=== PATIENT | male | born 1965 | race Caucasian/White ===

== ENCOUNTER 2017-11-10 05:57 | Inpatient (IN) | payer MEDICARE, OTHER ==
[2017-11-09 14:46] LABS: BASOPHILS % (AUTO) 0.6 % (0-1); EOSINOPHILS # (AUTO) 0.3 X10'3 (0-0.9); EOSINOPHILS % (AUTO) 4.2 % (0-6); HEMATOCRIT 49.3 % (42.0-52.0); LYMPHOCYTES # (AUTO) 1.4 X10'3 (1.1-4.8); LYMPHOCYTES % (AUTO) 22.2 % (21-51); MEAN CORPUSCULAR HEMOGLOBIN 34.1 PG (27.0-31.0); MEAN CORPUSCULAR HGB CONC 34.3 % (33.0-36.5); MEAN CORPUSCULAR VOLUME 99.3 FL (78-98); MEAN PLATELET VOLUME 7.7 FL (7.4-10.4); MONOCYTES # (AUTO) 0.7 X10'3 (0-0.9); MONOCYTES % (AUTO) 10.6 % (2-12); NEUTROPHILS # (AUTO) 4.1 X10'3 (1.8-7.7); NEUTROPHILS % (AUTO) 62.4 % (42-75); PLATELET COUNT 237 X10'3 (140-440); RED BLOOD COUNT 4.97 X10'6 (4.70-6.10); RED CELL DISTRIBUTION WIDTH 13.6 % (11.5-14.5); WHITE BLOOD COUNT 6.5 X10'3 (4.5-11.0)
[2017-11-09 14:54] LABS: ALBUMIN 3.8 G/DL (3.4-5.0); ANION GAP 6 (8-16); BLOOD UREA NITROGEN 14 MG/DL (7-18); BUN/CREATININE RATIO 15.4 (5.4-32.0); CALCIUM 10.1 MG/DL (8.5-10.1); CHLORIDE 100 MMOL/L (99-107); CREATININE 0.91 MG/DL (0.60-1.10); GLUCOSE 102 MG/DL (70-104); PARTIAL THROMBOPLASTIN TIME 25 SECONDS (22-32); POTASSIUM 4.6 MMOL/L (3.5-5.1); PROTHROMBIN TIME 10.3 SECONDS (9.0-12.0); SODIUM 138 MMOL/L (135-145); TOTAL CARBON DIOXIDE 31.9 MMOL/L (24-32); eGFR 87 ML/MIN
[~2017-11-10] VITALS: Ht 172.7 cm; Wt 88.4 kg
[2017-11-10] MEDS ORDERED: LORazepam 0.5 MG tablet PO PRN (06:10)
[2017-11-10] MEDS ORDERED: diphenhydrAMINE 25mg capsule PO PRN (06:10)
[2017-11-10 06:16] VITALS: BP 145/85
[2017-11-10] MEDS ORDERED: PRAS50CA2 PO (06:26)
[2017-11-10] MEDS ORDERED: METO50TA16 PO (06:26)
[2017-11-10] MEDS ORDERED: HYDR12.5 PO (06:26)
[2017-11-10] MEDS ORDERED: ASPI-1264 PO (06:26)
[2017-11-10] MEDS ORDERED: LISI40TA4 PO (06:26)
[2017-11-10] MEDS ORDERED: ATOR10TA87 PO (06:26)
[2017-11-10] MEDS ORDERED: ALPR1TAB2 PO (06:26)
[2017-11-10] MEDS ORDERED: FLEC100T2 PO (06:26)
[2017-11-10] MEDS ORDERED: VITA400C65 PO (06:26)
[2017-11-10] MEDS: normal saline 1000ml 1,000 ML IV SCH ×3 (06:34→17:44)
[2017-11-10] MEDS ORDERED: LIDOcaine/PRILOcaine 5gm cream TP ONE (07:15)
[2017-11-10] MEDS ORDERED: nitroGLYCERIN-Tridil 50MG/D5W 250 ML IV ONE (07:39)
[2017-11-10] MEDS ORDERED: LIDOcaine 1% 30ml preserv. free vial ONE (07:40)
[2017-11-10] MEDS ORDERED: iohexol 350MG/ML 100ml bottle IV ONE ×2 (07:40→09:04)
[2017-11-10] MEDS ORDERED: iohexol 350 MG/ML 50ML vial IV ONE (07:40)
[2017-11-10] MEDS ORDERED: heparin 1,000unit/ml 10ml vial 10 ML ONE (07:40)
[2017-11-10] MEDS ORDERED: midazolam 2 mg/2 ml injection ONE (07:40)
[2017-11-10] MEDS ORDERED: fentaNYL/PF 50MCG/1 ML 2ML syringe ONE (07:40)
[2017-11-10] MEDS ORDERED: verapamil 2.5 mg/ml inj IV ONE (08:00)
[2017-11-10] MEDS ORDERED: clopidogrel 300mg tablet ONE (09:24)
[2017-11-10] MEDS ORDERED: acetaminophen 325mg tablet PO PRN (10:50)
[2017-11-10] MEDS ORDERED: cyclobenzaprine 10mg tablet PO PRN (10:50)
[2017-11-10] MEDS ORDERED: CLOPIDOGREL BISULFATE 300MG TAB PO ONE (10:50)
[2017-11-10] MEDS ORDERED: HYDROcodone/acetaminophen 10/325mg tab PO PRN ×2 (10:50)
[2017-11-10] MEDS ORDERED: OXAZEpam 15mg capsule PO PRN (10:50)
[2017-11-10] MEDS ORDERED: magnesium hydroxide 30ml (MOM) UD suspension PO PRN (10:50)
[2017-11-10] MEDS ORDERED: proCHLORperazine 10 MG/2 ml inj IV PRN (10:50)
[2017-11-10] MEDS ORDERED: aspirin 81mg tab.chew PO ONE (10:55)
[2017-11-10] MEDS: OXAZEpam 15mg capsule PO SCH ×2 (11:10→17:44)
[2017-11-10 11:24] VITALS: BP 147/81
[2017-11-10 15:00] VITALS: BP 148/74
[2017-11-10 19:00] VITALS: BP 160/78
[2017-11-10] MEDS ORDERED: LIDOcaine 2% 5ml jelly TOP PRN (19:15)
[2017-11-10] MEDS: sotalol 80mg tablet PO SCH (20:17)
[2017-11-10] MEDS: docusate sod 100mg capsule PO SCH (20:18)
[2017-11-10] MEDS ORDERED: atorvastatin 20mg tablet PO SCH (21:00)
[2017-11-10] MEDS: ALPRAZolam 0.5mg tablet PO PRN (22:02)
[2017-11-10 23:00] VITALS: BP 162/86
[2017-11-10] MEDS ORDERED: temazepam 15mg capsule PO PRN (23:15)
[2017-11-11] VITALS (10 sets, daily range): BP systolic 121–146; BP diastolic 60–83
[2017-11-11] MEDS ORDERED: nitroGLYCERIN-Tridil 50MG/D5W 250 ML IV ONE (06:11)
[2017-11-11] MEDS ORDERED: midazolam 2 mg/2 ml injection ONE (06:11)
[2017-11-11] MEDS ORDERED: heparin 1,000unit/ml 10ml vial 10 ML ONE (06:11)
[2017-11-11] MEDS ORDERED: iohexol 350 MG/1 ML 200ml bottle ONE (06:11)
[2017-11-11] MEDS ORDERED: LIDOcaine 1% 30ml preserv. free vial ONE (06:11)
[2017-11-11] MEDS ORDERED: fentaNYL/PF 50MCG/1 ML 2ML syringe ONE (06:11)
[2017-11-11] MEDS ORDERED: verapamil 2.5 mg/ml inj IV ONE (06:27)
[2017-11-11] MEDS ORDERED: iohexol 350MG/ML 100ml bottle IV ONE (07:45)
[2017-11-11] MEDS ORDERED: clopidogrel 300mg tablet ONE (07:48)
[2017-11-11] MEDS ORDERED: PRASTERONE 50 MG PO SCH (08:00)
[2017-11-11] MEDS ORDERED: vitamin E 400 unit capsule PO SCH (08:00)
[2017-11-11] MEDS ORDERED: aspirin 81mg tab.chew PO SCH (08:00)
[2017-11-11] MEDS ORDERED: clopidogrel 75mg tablet PO SCH (08:00)
[2017-11-11] MEDS ORDERED: lisinopril 20mg tablet PO SCH (08:00)
[2017-11-11] MEDS ORDERED: aspirin 325mg tablet PO SCH (08:30)
[2017-11-11] MEDS: sotalol 80mg tablet PO SCH (09:14)
[2017-11-11] MEDS: docusate sod 100mg capsule PO SCH (09:15)
[2017-11-11] MEDS: OXAZEpam 15mg capsule PO SCH ×3 (09:15→16:00)
[2017-11-11] MEDS: ALPRAZolam 0.5mg tablet PO PRN (09:16)
[2017-11-11] MEDS ORDERED: normal saline 1000ml 1,000 ML IV SCH (09:20)
[2017-11-11] MEDS ORDERED: SOTA80TA73 PO (09:33)
[2017-11-11] MEDS ORDERED: ATOR80TA PO (09:33)
[2017-11-11] MEDS ORDERED: CLOP75TA35 PO (09:33)
== END 2017-11-11 16:55 | disposition home or self-care (01) | DRG 247 ==
LOC: SSTAY O 05:57 → PCU 3S 10:00 → SSTAY O 10:00 → PCU 3S 10:34
PROVIDERS: ADMIT Internal Medicine Cardiovascular Disease; ATTEND Internal Medicine Cardiovascular Disease
PROC: 4A023N7 Measurement of Cardiac Sampling and Pressure, Left Heart, Percutaneous Approach (ICD-10-PCS; principal; 2017-11-10)
PROC: 027034Z Dilation of Coronary Artery, One Artery with Drug-eluting Intraluminal Device, Percutaneous Approach (ICD-10-PCS; 2017-11-10)
PROC: B2111ZZ Fluoroscopy of Multiple Coronary Arteries using Low Osmolar Contrast (ICD-10-PCS; 2017-11-10)
PROC: B2151ZZ Fluoroscopy of Left Heart using Low Osmolar Contrast (ICD-10-PCS; 2017-11-10)
PROC: 027135Z Dilation of Coronary Artery, Two Arteries with Two Drug-eluting Intraluminal Devices, Percutaneous Approach (ICD-10-PCS; 2017-11-11)
DX: I25.10 Atherosclerotic heart disease of native coronary artery without angina pectoris (principal); I48.92 Unspecified atrial flutter; I48.0 Paroxysmal atrial fibrillation; M19.90 Unspecified osteoarthritis, unspecified site; F41.9 Anxiety disorder, unspecified; E66.9 Obesity, unspecified; Z60.2 Problems related to living alone; F17.220 Nicotine dependence, chewing tobacco, uncomplicated; G47.30 Sleep apnea, unspecified; E78.5 Hyperlipidemia, unspecified; I10 Essential (primary) hypertension; R94.39 Abnormal result of other cardiovascular function study; Z79.82 Long term (current) use of aspirin; Z79.899 Other long term (current) drug therapy; Z82.49 Family history of ischemic heart disease and other diseases of the circulatory system; Z68.29 Body mass index [BMI] 29.0-29.9, adult
CPT/HCPCS: 93458; C9600; C9601; 36415; 80048; 85025; 85347; 85610; 85730; 92920; 92921; 93005; 99152; 99153; A4620; A6257; A6258; C1725; C1769; C1874; J1644; J2250; J3010; J3490; J7030; Q0163; Q9967

== ENCOUNTER 2023-03-21 10:09 | Emergency (ER) | payer MEDICARE, BC ==
[~2023-03-21] VITALS: Ht 175.3 cm; Wt 82.0 kg
[~2023-03-21 10:09] MED LIST: ALPR1TAB2 PO; ASPI-1264 PO; ATOR80TA PO; CLOP75TA34 PO; LISI40TA13 PO; PRAS50CA2 PO; SOTA80TA73 PO; VITA-288 PO
[2023-03-21 10:20] VITALS: TEMP 98
[2023-03-21 11:53] LABS: BASOPHILS % (AUTO) 0.6 % (0-1); EOSINOPHILS # (AUTO) 0.2 X10'3 (0-0.9); EOSINOPHILS % (AUTO) 3.1 % (0-6); HEMATOCRIT 45.9 % (42.0-52.0); HEMOGLOBIN 15.7 g/dl (14.0-17.9); LYMPHOCYTES # (AUTO) 1.2 X10'3 (1.1-4.8); LYMPHOCYTES % (AUTO) 23.8 % (21-51); MEAN CORPUSCULAR HEMOGLOBIN 33.5 PG (27.0-31.0); MEAN CORPUSCULAR HGB CONC 34.1 g/dL (33.0-36.5); MEAN PLATELET VOLUME 7.3 FL (7.4-10.4); MONOCYTES # (AUTO) 0.3 X10'3 (0-0.9); MONOCYTES % (AUTO) 6.9 % (2-12); NEUTROPHILS # (AUTO) 3.3 X10'3 (1.8-7.7); NEUTROPHILS % (AUTO) 65.6 % (42-75); PLATELET COUNT 209 X10'3 (140-440); RED BLOOD COUNT 4.68 X10'6 (4.70-6.10); RED CELL DISTRIBUTION WIDTH 13.6 % (11.5-14.5)
[2023-03-21 12:10] LABS: ALANINE AMINOTRANSFERASE 33 U/L (12-78); ALBUMIN 3.4 G/DL (3.4-5.0); ALBUMIN/GLOBULIN RATIO 0.8 (1.1-1.5); ALKALINE PHOSPHATASE 68 IU/L (46-116); ANION GAP 8 (8-16); ASPARTATE AMINO TRANSFERASE 32 U/L (10-37); BILIRUBIN,TOTAL 0.5 MG/DL (0.1-1.0); BLOOD UREA NITROGEN 13 MG/DL (7-18); BUN/CREATININE RATIO 17.8 (10.0-20.0); CALCIUM 8.7 MG/DL (8.5-10.1); CHLORIDE 104 MMOL/L (99-107); CREATININE 0.73 MG/DL (0.60-1.10); GLUCOSE 132 MG/DL (70-104); POTASSIUM 3.6 MMOL/L (3.5-5.1); SODIUM 142 MMOL/L (135-145); TOTAL CARBON DIOXIDE 30.5 MMOL/L (24-32); TOTAL PROTEIN 7.8 G/DL (6.4-8.2); eCRCL 109 ML/MIN; eGFR > 90 ML/MIN
[2023-03-21 12:19] LABS: PRO BRAIN NATRIURETIC PEPTIDE 140 PG/ML (0-125)
[2023-03-21] MEDS ORDERED: HYDR12.55 PO (13:55)
[2023-03-21] MEDS ORDERED: iohexol 350MG/ML 100ml bottle IV ONE (13:59)
[2023-03-21 15:02] LABS: BILIRUBIN,URINE NEGATIVE (Neg); CLARITY,URINE CLEAR (Clear); COLOR,URINE YELLOW (Yellow); GLUCOSE, URINE NEGATIVE (Neg); KETONES,URINE NEGATIVE (Neg); LEUKOCYTE ESTERASE ,URINE NEGATIVE (Neg); NITRITES, URINE NEGATIVE (Neg); OCCULT BLOOD,URINE NEGATIVE (Neg); PROTEIN,URINE NEGATIVE (Neg); UROBILINOGEN,URINE 0.2 E.U/dL (0.2-1.0)
[2023-03-21 15:03] LABS: UA COLLECTION TYPE URINAL
[2023-03-21 15:28] LABS: URINE AMPHETAMINE SCREEN NEGATIVE (Neg); URINE BARBITUATE SCREEN NEGATIVE (Neg); URINE BENZODIAZEPINES SCREEN NEGATIVE (Neg); URINE CANNABINOID SCREEN NEGATIVE (Neg); URINE COCAINE SCREEN NEGATIVE (Neg); URINE METHADONE SCREEN NEGATIVE (Neg); URINE OPIATE SCREEN NEGATIVE (Neg); URINE PHENCYCLIDINE SCREEN NEGATIVE (Neg)
[2023-03-21] MEDS ORDERED: meclizine 12.5mg tablet PO ONE (16:00)
[2023-03-21] MEDS ORDERED: LORazepam 1 MG tablet PO ONE (16:00)
[2023-03-21] MEDS ORDERED: MECL-302 PO (17:54)
[2023-03-21 18:02] VITALS: BP 171/92; PULSE 72; RESP 19; O2SAT 96
== END 2023-03-21 18:10 | disposition home or self-care (01) ==
LOC: ER 10:10
DX: I51.7 Cardiomegaly (principal); I11.0 Hypertensive heart disease with heart failure; E78.00 Pure hypercholesterolemia, unspecified; Z79.899 Other long term (current) drug therapy; Z79.1 Long term (current) use of non-steroidal anti-inflammatories (NSAID); Z79.2 Long term (current) use of antibiotics
CPT/HCPCS: 36415; 70450; 70496; 70498; 71045; 80053; 80305; 81003; 83880; 84484; 85025; 93005; 99285; J3490; J8597; Q9967

== ENCOUNTER 2024-02-03 09:18 | Day surgery (SDC) | payer BC, MEDICAID ==
[2024-02-02 11:40] LABS: BASOPHILS % (AUTO) 0.6 % (0-1); EOSINOPHILS # (AUTO) 0.4 X10'3 (0-0.9); EOSINOPHILS % (AUTO) 4.9 % (0-6); HEMATOCRIT 45.9 % (42.0-52.0); HEMOGLOBIN 15.9 g/dl (14.0-17.9); LYMPHOCYTES # (AUTO) 1.6 X10'3 (1.1-4.8); LYMPHOCYTES % (AUTO) 18.8 % (21-51); MEAN CORPUSCULAR HEMOGLOBIN 34.4 PG (27.0-31.0); MEAN CORPUSCULAR HGB CONC 34.5 g/dL (33.0-36.5); MEAN CORPUSCULAR VOLUME 99.6 FL (78-98); MEAN PLATELET VOLUME 7.4 FL (7.4-10.4); MONOCYTES # (AUTO) 0.9 X10'3 (0-0.9); MONOCYTES % (AUTO) 10.5 % (2-12); NEUTROPHILS # (AUTO) 5.5 X10'3 (1.8-7.7); NEUTROPHILS % (AUTO) 65.2 % (42-75); PLATELET COUNT 226 X10'3 (140-440); RED BLOOD COUNT 4.61 X10'6 (4.70-6.10); RED CELL DISTRIBUTION WIDTH 14.1 % (11.5-14.5); WHITE BLOOD COUNT 8.5 X10'3 (4.5-11.0)
[2024-02-02 11:53] LABS: ALBUMIN 3.6 G/DL (3.4-5.0); ANION GAP 6 (8-16); BLOOD UREA NITROGEN 17 MG/DL (7-18); BUN/CREATININE RATIO 19.1 (10.0-20.0); CALCIUM 9.3 MG/DL (8.5-10.1); CHLORIDE 102 MMOL/L (99-107); CREATININE 0.89 MG/DL (0.60-1.10); GLUCOSE 135 MG/DL (70-104); POTASSIUM 4.2 MMOL/L (3.5-5.1); SODIUM 138 MMOL/L (135-145); TOTAL CARBON DIOXIDE 29.9 MMOL/L (24-32); eGFR 87 ML/MIN
[2024-02-02 12:54] LABS: APTT 25 SECONDS (22-32)
[2024-02-02 13:00] LABS: PROTHROMBIN TIME 10.8 SECONDS (9.0-12.0)
[2024-02-03] VITALS (12 sets, daily range): BP systolic 142–178; BP diastolic 52–98; PULSE 79–91; RESP 14–15; TEMP 97.2; O2SAT 96–98
[~2024-02-03] VITALS: Ht 172.7 cm; Wt 87.3 kg
[~2024-02-03 09:18] MED LIST changes: +ATOR-429 PO; -ATOR80TA PO; +HYDR12.55 PO; +MECL-302 PO
[2024-02-03] MEDS ORDERED: SOTA80TA PO (09:50)
[2024-02-03] MEDS ORDERED: ATOR-2 PO (09:51)
[2024-02-03] MEDS ORDERED: CLOP-32 PO (09:51)
[2024-02-03] MEDS ORDERED: OMEG1CAP46 PO (09:52)
[2024-02-03] MEDS ORDERED: UBID200C37 PO (09:53)
[2024-02-03] MEDS ORDERED: BIOT1TAB PO (09:54)
[2024-02-03] MEDS ORDERED: CHOL20004 PO (09:54)
[2024-02-03] MEDS: LORazepam 0.5 MG tablet PO PRN (10:10)
[2024-02-03] MEDS: diphenhydrAMINE 25mg capsule PO PRN (10:10)
[2024-02-03] MEDS: normal saline 1,000 ML IV SCH (10:10)
[2024-02-03] MEDS ORDERED: midazolam 1 mg/ML 2ml injection ONE (11:23)
[2024-02-03] MEDS ORDERED: LIDOcaine 1% (10mg/ml) 2ml vial ONE (11:23)
[2024-02-03] MEDS ORDERED: verapamil 2.5 mg/ml inj IV ONE (11:23)
[2024-02-03] MEDS ORDERED: iohexol 350 MG/ML 50ML vial IV ONE ×2 (11:23→12:34)
[2024-02-03] MEDS ORDERED: fentaNYL/PF 50MCG/1 ML 2ML syringe ONE (11:23)
[2024-02-03] MEDS ORDERED: heparin 1,000unit/ml 10ml vial 10 ML ONE (11:24)
[2024-02-03] MEDS ORDERED: iohexol 350MG/ML 100ml bottle IV ONE ×3 (11:24→13:05)
[2024-02-03] MEDS ORDERED: nitroGLYCERIN 500mcg/5mL D5W 5 ML IV ONE ×3 (11:24→13:32)
[2024-02-03] MEDS ORDERED: heparin 25,000 UNIT/250ml bag 250 ML IV ONE (12:38)
[2024-02-03] MEDS ORDERED: heparin 1,000 UNITS/NS 500ml 500 ML ONE (13:47)
[2024-02-03] MEDS ORDERED: clopidogrel 300mg tablet ONE (13:52)
[2024-02-03] MEDS ORDERED: clopidogrel 75mg tablet ONE ×2 (13:52→13:54)
[2024-02-03] MEDS ORDERED: HYDROcodone/acetaminophen 10/325mg tab PO PRN (14:55)
[2024-02-03] MEDS ORDERED: HYDROcodone/acetaminophen 5mg/325mg tablet PO PRN (14:55)
[2024-02-03] MEDS: sodium bicarbonate 1meq/ml syr 150 ML in dextrose 5%-water 1,000 ML IV ONE (15:52)
[2024-02-03] MEDS: ACETYLCYSTEINE 200 MG/1 ML 4 ML ORAL SOLUTION PO ONE (15:57)
[2024-02-04] MEDS ORDERED: clopidogrel 75mg tablet PO SCH (08:00)
== END 2024-02-03 20:00 | disposition home or self-care (01) ==
LOC: SSTAY O 09:18
PROVIDERS: ATTEND Internal Medicine Cardiovascular Disease
DX: I25.10 Atherosclerotic heart disease of native coronary artery without angina pectoris (principal); R94.39 Abnormal result of other cardiovascular function study; I10 Essential (primary) hypertension; E78.5 Hyperlipidemia, unspecified; I48.0 Paroxysmal atrial fibrillation; I48.92 Unspecified atrial flutter; E66.9 Obesity, unspecified; F41.9 Anxiety disorder, unspecified; F17.220 Nicotine dependence, chewing tobacco, uncomplicated; Z79.02 Long term (current) use of antithrombotics/antiplatelets; Z79.82 Long term (current) use of aspirin; Z79.899 Other long term (current) drug therapy; Z95.5 Presence of coronary angioplasty implant and graft; Z98.890 Other specified postprocedural states; Z68.29 Body mass index [BMI] 29.0-29.9, adult; Z82.49 Family history of ischemic heart disease and other diseases of the circulatory system
CPT/HCPCS: 36415; 80048; 85025; 85347; 85610; 85730; 93005; 93458; 99152; 99153; A6258; C1874; C9600; J1644; J2003; J2250; J3010; J3490; J7030; J7070; Q0163; Q9967; 76937; A6402; C1725; C1751; C1769; C1892; C1894